=== PATIENT | male | born 1930 | race Caucasian/White ===

== ENCOUNTER → 2017-10-24 | Outpatient (CLI) | payer MEDICARE, BC ==
[~2017-10-24] MED LIST: ADVIL200 MG PO; AMOXICILLIN 8751 TAB PO; ANTIVERT 25MG25 MG PO; ASPIR-LOW81 MG PO; ASPIRIN 81M81 MG/TA2 PO; ASPIRIN E.C. 8181 MG; BP med; CEPHALEXIN500 M1 PO; CIPRO 500MG TA500 MG PO; DEBROX 15 ML15 M1 OT; FLOMAX; FLOMAX 0.40.4 MG/CAP PO; FLOMAX0.4 MG PO; GLUCOSAMINE COM1 TAB PO; MECLIZINE12.5 MG PO; MULTIPLE VITAMI1 CAP PO; NITROGLYCERIN0.4 MG SL; NORVASC 5MG5 MG/TAB PO; OCEAN NASAL SPR45 ML NS; PEPCID 20MG TAB20 MG PO; PERCOCET 325 MG1 TA2 PO; REMERON 15M15 MG/TA1 PO; TYLENOL 325MG325 MG PO; VITAMIN E100 I3 PO; ZOFRAN4 M1 PO; ZYRTEC 10MG10 MG PO; [UNRECOGNIZED DRUG - REMARK]; depression med; prostate med
== END ==
LOC: COL.RAD 12:03
DX: Z01.812 Encounter for preprocedural laboratory examination (principal); I67.82 Cerebral ischemia; G31.9 Degenerative disease of nervous system, unspecified; I35.8 Other nonrheumatic aortic valve disorders; H53.9 Unspecified visual disturbance
CPT/HCPCS: A9585

== ENCOUNTER 2017-12-28 17:44 | Emergency (ER) | payer MEDICARE, BC ==
[~2017-12-28] VITALS: Ht 177.8 cm; Wt 95.5 kg
[2017-12-28] MEDS ORDERED: ALEVE 220MG220 MG PO (17:54)
[2017-12-28] MEDS ORDERED: COZAAR100 MG PO (17:54)
[2017-12-28 18:24] VITALS: TEMP 99.7
[2017-12-28 18:50] LABS: COLLECTION METHOD CLEAN CATCH
[2017-12-28 18:54] LABS: BASO % 0.2 % (0.0-2.0); EOS % 0.1 % (0-4.0); GRAN # 8.7 (1.4-6.5); GRAN % 83.9 % (42.2-75.2); HEMOGLOBIN 11.6 g/dl (13.5-18.0); LYMPH # 0.8 (1.2-3.4); LYMPH % 7.8 % (20.0-51.0); MEAN CELL VOLUME 97 fl (80.0-100.0); MEAN CORPUSCULAR HEMOGLOBIN 34 pg (27.0-31.0); MEAN CORPUSCULAR HGB CONC 35 g/dl (33.0-37.0); MEAN PLATELET VOLUME 9.6 fl (7.4-10.4); MONO # 0.8 (0.1-0.6); MONO % 7.7 % (1.7-9.3); PLATELET COUNT 214 K/mm3 (130-400); RED BLOOD COUNT 3.38 M/mm3 (4.20-5.60); REDCELL DISTRIBUTION WIDTH-CV 13.6 % (11.5-14.5)
[2017-12-28 18:57] LABS: HEMATOCRIT 32.9 % (42.0-52.0)
[2017-12-28 19:05] LABS: ALANINE AMINOTRANSFERASE 41 U/L (21-72); ALBUMIN 4.2 gm/dL (3.5-5.0); ALKALINE PHOSPHATASE 59 U/L (50-136); ANION GAP 13 mmol/L (7-16); AST,SGOT 36 U/L (15-37); BILIRUBIN,TOTAL 1.1 mg/dL (0.0-1.0); BLOOD UREA NITROGEN 22 mg/dL (9-20); C-REACTIVE PROTEIN 8.7 mg/dL (0.0-0.9); CARBON DIOXIDE 23 mmol/L (22-30); CHLORIDE 98 mmol/L (98-107); GLUCOSE 105 mg/dL (74-106); POTASSIUM 3.8 mmol/L (3.4-5.0); SODIUM 134 mmol/L (137-145); TOTAL PROTEIN 7.6 gm/dL (6.4-8.2)
[2017-12-28 19:07] LABS: PH 5 (5-8); SQUAMOUS EPITHELIAL None Seen /hpf; URINE APPEARANCE Clear; URINE BACTERIA None Seen /hpf; URINE BILIRUBIN Negative (NEGATIVE); URINE BLOOD 1+ (NEGATIVE); URINE COLOR Yellow; URINE GLUCOSE Negative (NEGATIVE); URINE KETONE Negative (NEGATIVE); URINE LEUKOCYTE ESTERASE Negative (NEGATIVE); URINE NITRATE Negative (NEGATIVE); URINE PROTEIN(semi-quant) Negative (NEGATIVE); URINE RBC 0-2 /hpf; URINE UROBILINOGEN Negative (NEGATIVE)
[2017-12-28 19:14] LABS: TROPONIN-I < 0.012 ng/mL (0.000-0.034)
[2017-12-28 20:31] VITALS: BP 113/64; PULSE 96
[2017-12-28] MEDS ORDERED: CIPRO 500MG TA500 MG PO (20:55)
[2017-12-28] MEDS ORDERED: FLAGYL500 MG PO (20:55)
== END 2017-12-28 21:18 | disposition home or self-care (01) ==
LOC: COL.ER 17:44
PROVIDERS: Emergency Medicine
DX: R19.7 Diarrhea, unspecified (principal); I10 Essential (primary) hypertension
CPT/HCPCS: J2405; J7030

== ENCOUNTER → 2018-05-10 | Outpatient (CLI) | payer MEDICARE, BC ==
[~2018-05-10] MED LIST changes: +ALEVE 220MG220 MG PO; +COZAAR100 MG PO; +FLAGYL500 MG PO
== END ==
LOC: COL.RAD 15:13
DX: R22.1 Localized swelling, mass and lump, neck (principal)

== ENCOUNTER 2018-11-22 20:39 | Emergency (ER) | payer MEDICARE, BC | END 2018-11-22 20:45 | disposition left against medical advice (07) | LOC: COL.ER 20:39 | DX: Z72.9 Problem related to lifestyle, unspecified (principal) ==

== ENCOUNTER 2018-12-19 09:40 | Inpatient (IN) | payer MEDICARE, BC ==
[~2018-12-19] VITALS: Ht 177.8 cm; Wt 94.8 kg
[2019-01-28] MEDS ORDERED: AVAPRO TAB150 MG/TAB PO (06:18)
[2019-02-18] VITALS (12 sets, daily range): BP systolic 115–157; BP diastolic 64–85; PULSE 63–113; TEMP 97.2–98
--- NOTE | 2019-02-18 05:46 | NUR ---
Pt arrived to room 330, transferred by PILOT via wheelchair. Pt awake, a&o, cooperative c cares. Pt oiriented to room, unit policies et current POC. Questions invited et answered, pt verbalized understanding. Denies needs, will continue c admit.
[2019-02-18] MEDS ORDERED: AVAPRO TAB150 MG/TAB PO (06:08)
[2019-02-18] MEDS ORDERED: REMERON 15M15 MG/TA1 PO (06:09)
[2019-02-18] MEDS ORDERED: FERROUS SU325 MG/TAB PO (06:10)
[2019-02-18] MEDS ORDERED: VITAMIN C500 MG PO (06:10)
[2019-02-18] MEDS ORDERED: FOLIC ACID0.4 MG PO (06:11)
--- NOTE | 2019-02-18 10:36 | NUR ---
Initial visit attempt; Patient out, Brake Operator Sheet Metal spoke with his daughter, wishing patient well and mentioning that he will be offered Holy Communion while here as he has listed his yazdanism affiliation. Daughter thanked Brake Operator Sheet Metal for stopping.
--- NOTE | 2019-02-18 10:58 | NUR ---
PT TO ROOM [address] LOPEZ PACU @ 1035. PT IS A/O X3 LUNGS CLEAR, ABDOMINAL SOUNDS PRESENT. DRESSING TO LEFT KNEE CDI WITH OCCLUSIVE MAGDIEL WRAP OVER INCISION. ICE TO AFFECTED KNEE. PEDAL PULSES PALPABLE BILATERALLY. PT STRAIGHT CATHED @ 0930 BY PACU STAFF. 900 MLS REMOVED.
--- NOTE | 2019-02-18 11:00 | NUR ---
PATIENT DENIES NEEDS OR PAIN AT THIS TIME.
--- NOTE | 2019-02-18 16:41 | NUR ---
Account Service Associate met with patient to complete intake and discuss discharge planning. Patient lives alone in [place] although his son Ed (ph#[phone]) lives in [facility] as well. Patient reports his other son Felix (ph#[phone]) lives in [place]. Patient also reports his daughter Sheree (ph#[phone]) that lives in [place] is down for the week to provide support. Patient sees Dr. Turner for primary care and obtains needed medications from [facility] with no issue. Patient reports independence with ADLS although he has noticed a decline in his mobility over the last year. Patient has a walker at home. 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 Patient states he would like to discharge to [facility] again for a skilled stay. SW will continue to follow.
--- NOTE | 2019-02-18 18:48 | NUR ---
REPORT TO MARTINA LOPEZ.
--- NOTE | 2019-02-18 19:36 | NUR ---
Report received from JESSICA Washington.
[2019-02-19 00:33] VITALS: BP 103/46; PULSE 72; TEMP 98.7
--- NOTE | 2019-02-19 02:55 | NUR ---
Patient ambulated to the joint care nurse's station. Noted to struggle bringing right leg forward and bearing weight on the left leg. Attempted some education. Needs further teaching. Pain well controlled this shift. Will continue to monitor.
[2019-02-19 03:27] VITALS: BP 101/43; PULSE 71; TEMP 98.5
--- NOTE | 2019-02-19 06:17 | NUR ---
Patient rested well throughtout the night. Pain well controlled. Will report off to day shift nurse.
--- NOTE | 2019-02-19 06:43 | NUR ---
Report from Gracie LOPEZ.
[2019-02-19 07:18] VITALS: BP 140/72; PULSE 85; TEMP 98.2
--- NOTE | 2019-02-19 08:54 | NUR ---
PT UP TO ROE WITH THERAPY. VERY VOCAL. PT PREMEDICATED WITH OXY AFTER BREAKFAST. SLOW HALTING GAIT DURING THERAPY. PT RETURNED TO RECLINER AFTER PT. OT TO WORK WITH PATIENT NEXT.
--- NOTE | 2019-02-19 10:00 | NUR ---
Simple dressing change on left knee post op day 1, dressing contained minimal dark red drainage, put on 10" Aquacel bandage; edges on incision well approximated; minimal redness, warmth and swelling; counted 29 ishmael
--- NOTE | 2019-02-19 10:14 | NUR ---
SW met with the patient to discuss long-term placement. SW presented the the patient choice form. The first choice is [facility] and second choice is [facility]. Patient choice form was placed in the patient's chart. SW faxed referrals and awaiting responses. JOSH will continue to follow.
--- NOTE | 2019-02-19 10:44 | NUR ---
Dylan from [facility] reports they can accept the patient for a snf stay. SW will continue to follow.
--- NOTE | 2019-02-19 10:46 | NUR ---
PT ACCEPTED BY [facility] FOR REHAB AFTER MEETING CRITERIA.
[2019-02-19 11:48] VITALS: BP 140/68; PULSE 77; TEMP 98.1
--- NOTE | 2019-02-19 14:12 | NUR ---
JOSH contacted Lang at [facility] to inform her that the first choice accepted and to thank her for looking at the referral. JOSH will continue to follow.
--- NOTE | 2019-02-19 16:01 | NUR ---
PT UP TO BR VOIDED AND RETURNED TO BED WITH SBAX1.
[2019-02-19 16:59] VITALS: BP 127/83; PULSE 78; TEMP 98.3
--- NOTE | 2019-02-19 18:58 | NUR ---
REPORT TO MARTINA LOPEZ.
[2019-02-19 20:15] VITALS: BP 153/67; PULSE 80; TEMP 98
[2019-02-20 00:42] VITALS: BP 144/81; PULSE 89; TEMP 97.4
--- NOTE | 2019-02-20 01:02 | NUR ---
Patient resting well throughout the night. States he wants pain medication every 3 hours. Education provided that this nurse will not wake patient up for pain medication, that he needs to call for it. Verbalized understanding. Bed alarm on. Daughter at bedside. Will continue to monitor.
[2019-02-20 05:01] VITALS: BP 136/76; PULSE 92; TEMP 98.3
--- NOTE | 2019-02-20 07:05 | NUR ---
Report from Gracie LOPEZ.
[2019-02-20 08:14] VITALS: BP 143/76; PULSE 90; TEMP 98.5
--- NOTE | 2019-02-20 10:36 | NUR ---
MILK OF MAG PRUNE JUICE AND APPLE JUICE COCKTAIIL PROVIDED FOR CONSTIPATION PER PT REQUEST.
[2019-02-20 12:04] VITALS: BP 108/56; PULSE 83; TEMP 97.7
--- NOTE | 2019-02-20 15:18 | NUR ---
JOSH presented the IM form. The patient understood and signed the form. A copy was provided to the patient and original was placed in the chart. JOSH will continue to follow.
--- NOTE | 2019-02-20 15:32 | NUR ---
JOSH faxed patient updates to Dylan at [facility]. JOSH will continue to follow.
[2019-02-20 16:47] VITALS: BP 129/70; PULSE 96; TEMP 98.8
--- NOTE | 2019-02-20 16:54 | NUR ---
PT UP TO BR WITH ASSSIST. HAD SM BM RETURNED TO BED. REEQUESTING ANOTHER DOSE OF MOM WHICH WAS PROVIDED IN [facility].
[2019-02-20 20:00] VITALS: BP 122/62; PULSE 97; TEMP 99.2
--- NOTE | 2019-02-20 20:00 | NUR ---
Report received. Asssumed care for night cleaner. Assessment complete. VS stable. Denies pain. Plan of care discussed for this shift to include pain control and ambulation. Denies questions or concerns. Aquacell to left knee CDI. Fresh ice pack to knee. INT that was in right forearm found on floor. States he accidently pulled it out earlier this evening. Cath intact-no active bleeding/bruising. Denies questions or concerns. Call light in reach. Bed in low position/wheels locked. WIll monitor.
--- NOTE | 2019-02-20 21:00 | NUR ---
Ambulated in hallway, 2 assist/gait belt/walker with staff for approx 150feet. Tolerated well.
[2019-02-21] VITALS: BP 127/64; PULSE 94; TEMP 99.5
--- NOTE | 2019-02-21 01:00 | NUR ---
Up to bathroom at this time with assist x 2/gait belt/walker. Very unsteady gait. Voided without difficulty. Back to bed. Denies need for pain medications.
[2019-02-21 04:00] VITALS: BP 122/65; PULSE 85; TEMP 98.5
--- NOTE | 2019-02-21 04:30 | NUR ---
Slept off and on this shift. C/O pain at this time-rating 4/10-to left knee-described as constant ache. [place] one tab given per dr order. Fresh ice pack applied. Denies nausea/shortness of breath. Call light in reach/bed in low. Will monitor.
--- NOTE | 2019-02-21 06:50 | NUR ---
appears to be sleeping, bedside shift report received JESSICA Nunn
[2019-02-21 07:55] VITALS: BP 138/66; PULSE 34; TEMP 97.7
--- NOTE | 2019-02-21 08:15 | NUR ---
had breakfast and tolerated well, full assessment completed, see interventions for further info, given dulcolax supp per patient's rquest, denies other needs
[2019-02-21] MEDS ORDERED: XARELTO10 MG PO (08:42)
[2019-02-21] MEDS ORDERED: NORCO 325 MG-7.1 TAB PO (08:42)
[2019-02-21] MEDS ORDERED: ROXICODONE 55 MG/TAB PO (08:44)
[2019-02-21] MEDS ORDERED: SENNA-S 50 MG-81 TAB PO (08:46)
--- NOTE | 2019-02-21 09:37 | NUR ---
The patient is to discharge today, 02/21 to [facility]. JOSH faxed updates and discharge orders to Dylan at [facility]. Dylan to advise JOSH of transportation time.
[2019-02-21 09:39] VITALS: BP 138/66; PULSE 34; TEMP 97.7
[2019-02-21 12:33] VITALS: BP 114/59; PULSE 77; TEMP 98.1
--- NOTE | 2019-02-21 13:06 | NUR ---
appears to be sleeping, awakened and therapy in to work with patient
--- NOTE | 2019-02-21 15:10 | NUR ---
discharged per WC
--- NOTE | 2019-02-21 15:21 | NUR ---
report called to Ayaka chicas [facility],
== END 2019-02-21 15:21 | DRG 470 ==
LOC: JCC 02-18 05:14
PROVIDERS: ADMIT Orthopaedic Surgery
PROC: 0SRD0J9 Replacement of Left Knee Joint with Synthetic Substitute, Cemented, Open Approach (ICD-10-PCS; principal; 2019-02-18 07:30)
DX: M17.12 Unilateral primary osteoarthritis, left knee (principal); I10 Essential (primary) hypertension; I25.10 Atherosclerotic heart disease of native coronary artery without angina pectoris; D64.9 Anemia, unspecified; Z96.651 Presence of right artificial knee joint; Z85.828 Personal history of other malignant neoplasm of skin; Z87.891 Personal history of nicotine dependence
CPT/HCPCS: A9284; C1776; J0690; J1100; J2250; J2405; J2704; J3010; J7120

== ENCOUNTER 2019-01-28 05:26 | Emergency (ER) | payer MEDICARE, BC ==
[~2019-01-28] VITALS: Wt 95.5 kg
[2019-01-28 05:32] VITALS: TEMP 98.6
[2019-01-28] MEDS ORDERED: AVAPRO TAB150 MG/TAB PO (06:18)
[2019-01-28 07:00] VITALS: PULSE 71
[2019-01-28 08:20] VITALS: BP 153/96
== END 2019-01-28 08:25 | disposition home or self-care (01) ==
LOC: COL.ER 05:26
DX: R04.0 Epistaxis (principal); I10 Essential (primary) hypertension